=== PATIENT | male | born 1925 | race Caucasian/White ===

== ENCOUNTER 2017-04-16 09:28 | Inpatient (IN) | payer OTHER ==
[2017-04-16 09:34] VITALS: BMI 25.8
[2017-04-16] MEDS ORDERED: niCARdipine HCL 25 MG/10 ML AMPUL IVPB ONE (09:43)
--- NOTE | 2017-04-16 09:43 | PDOC ---
History of Present Illness - General History Source: Patient Exam Limitations: No Limitations - History of Present Illness Initial Comments: The patient is an 89 yo M with a past medical history significant for nephrectomy 6 years ago who presents with L sided facial droop, slurred speech and headache since this morning. The patient states he felt normal yesterday when he was golfing. The patient denies taking blood thinners or anticoagulation therapy. The patient states his symptoms began when he woke up this morning. As per EMS, the patient stated that a few weeks ago he had a similar episode where he got a headache and fainted. The patient states he went to bed at 10:30 PM last night. As per EMS, the patient was able to raise is bilateral UEs. <Amairani Porter - Last Filed: 04/16/17 11:31> <Maru Fu - Last Filed: 04/17/17 20:37> - General Stated Complaint: CVA/TIA Past History <Amairani Porter - Last Filed: 04/16/17 11:31> - Psycho/Social/Smoking Cessation Hx Suicidal Ideation: No Smoking History: Unknown if ever smoked Hx Alcohol Use: No Drug/Substance Use Hx: No <Maru Fu - Last Filed: 04/17/17 20:37> - Past Medical History Allergies/Adverse Reactions: Allergies Allergy/AdvReac Type Severity Reaction Status Date / Time No Known Allergies Allergy Verified 04/16/17 10:16 Home Medications: Ambulatory Orders Unobtainable [Unobtainable] 04/16/17 Review of Systems - Review of Systems Able to Perform ROS?: Yes Comments:: GENERAL/CONSTITUTIONAL: No fever or chills. No weakness. HEAD, EYES, EARS, NOSE AND THROAT: No change in vision. No ear pain or discharge. No sore throat. CARDIOVASCULAR: No chest pain or shortness of breath. RESPIRATORY: No cough, wheezing, or hemoptysis. GASTROINTESTINAL: No nausea, vomiting, diarrhea or constipation. GENITOURINARY: No dysuria, frequency, or change in urination. MUSCULOSKELETAL: No joint or muscle swelling or pain. No neck or back pain. SKIN: No rash NEUROLOGIC: +headache, L sided facial droop, slurred speech No vertigo, loss of consciousness. ENDOCRINE: No increased thirst. No abnormal weight change. HEMATOLOGIC/LYMPHATIC: No anemia, easy bleeding, or history of blood clots. ALLERGIC/IMMUNOLOGIC: No hives or skin allergy. <Amairani Porter - Last Filed: 04/16/17 11:31> *Physical Exam - Vital Signs Last Vital Signs Temp Pulse Resp BP Pulse Ox 97.4 F L 68 18 192/96 96 04/16/17 09:32 04/16/17 10:00 04/16/17 09:32 04/16/17 10:00 04/16/17 09:32 - Physical Exam Comments: GENERAL: Awake, alert, and fully oriented, in no acute distress HEAD: No signs of trauma EYES: PERRLA, EOMI, sclera anicteric, conjunctiva clear ENT: Auricles normal inspection, hearing grossly normal, nares patent, oropharynx clear without exudates. Moist mucosa NECK: Normal ROM, supple, no lymphadenopathy, JVD, or masses LUNGS: Breath sounds equal, clear to auscultation bilaterally. No wheezes, and no crackles HEART: Regular rate and rhythm, normal S1 and S2, no murmurs, rubs or gallops ABDOMEN: Soft, nontender, normoactive bowel sounds. No guarding, no rebound. No masses EXTREMITIES: Normal range of motion, no edema. No clubbing or cyanosis. No cords, erythema, or tenderness NEUROLOGICAL: SEE MDM SKIN: Warm, Dry, normal turgor, no rashes or lesions noted. <Amairani Porter - Last Filed: 04/16/17 11:31> - Vital Signs Last Vital Signs Temp Pulse Resp BP Pulse Ox 97.4 F L 71 18 201/96 96 04/16/17 09:32 04/16/17 09:32 04/16/17 09:32 04/16/17 09:32 04/16/17 09:32 <Maru Fu - Last Filed: 04/17/17 20:37> NIH Stroke Scale - Last Known Well Date/Time & Onset Date Last Known Well: 04/15/17 Time Last Known Well: 22:30 - Initial Evaluation Level of consciousness: Not alert, but arousable with minimal stimulation Ask patient the month and their age: Answers one correctly Ask patient to open & close eyes; make fist and let go: Obeys one correctly Best gaze (horizontal eye movement): Partial gaze palsy Visual field testing: Bilateral hemianopia (blind including cortical blindness) Facial paresis (Show teeth/raise eyebrows/close eyes tight): Partial paralysis ( total or near paralysis of lower face) Motor Function: Left Arm: Some effort against gravity Motor Function: Right Arm: Normal (extends arm 90 (or 45) degrees for 10 seconds without drift Motor Function: Left Leg: Drift Motor Function: Right Leg: Some effort against gravity Limb Ataxia: No ataxia Sensory(Use pinprick test arms,legs,trunk,face/side to side): Mild to moderate decrease in sensation Best language (Describe picture, name items, read sentences): Mild to moderate aphasia Dysarthria (read several words): Mild to moderate slurring of words Extinction and Inattention: Profound roxann-inattention or extinction to more than one modality - Total Score NIH Stroke Scale Score: 19 <Maru Fu - Last Filed: 04/17/17 20:37> tPA Exclusion Checklist 0-3hr - Time Elapsed Date last known well: 04/15/17 Time last known well: 22:30 Elaspsed time: 1 Day(s) and 22 Hour(s) and 6 Minutes - Thrombolytic Therapy Candidate Is the patient eligible for Thrombolytic Therapy?: No - Exclusion Criteria 0-3hr SBP greater than 185 or DBP greater than 110mmHg despite tx: Yes Recent IC/spinal surgery,head trauma or stroke w/in last 3mo: No Hx of previous IC hemorrhage, IC neoplasm, AVM or aneurysm: No Active internal bleeding: No Blding diathesis(low plt ct, inc PTT,INR>1.7 or use of NOAC): No Symptoms suggest subarachnoid hemorrhage: No CT demonstrates multilobar infarct(>1/3 cerebral hemiphere): No Arterial puncture at noncompressible site in previous 7 days: No Blood glucose concentration less than 50mg/dL (2.7mmol/L): No - Relative Exclusion Criteria 0-3h Life expectancy <1yr/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 There is normal sinus rhythm with a normal rate of 64 bpm. The axis is normal. The intervals are normal - pr: 168ms, QRS:86ms, QTc:462ms. There are no ST elevations or depressions. T waves diffusely flattened 04/16/17 13:21 <Maru Fu - Last Filed: 04/17/17 20:37> Critical Care Time/MDM Note Total Critical Care Time: 120 Critical Care Statement: The care of this patient involved high complexity decision making to prevent further life threatening deterioration of the patient 's condition and/or to evaluate & treat vital organ system(s) failure or risk of failure. - Medical Decision Making Note: A portion of this note was documented by scribe services under my direction. I have reviewed the details of the note, within reason, and agree with the documentation with the following case summary and management plan written by me. Nursing documentation reviewed and incorporated into medical decision making This is an 89 yo M with a history of renal cancer s/p nephrectomy Pt also godoy s history of BPH NO anticoagulants No anti platelets Pt went to bed in his usual state of health at 10:30 pm He awoke this morning and could not see his , he complained of headache He went back to bed for 1 hour He awoke again and again could not see his She assisted him to standing and stated that he was shaky She noted that his speech was slurred Apparently, this patient had a syncopal event three weeks prior in the setting of a headache Head CT reportedly normal, labs negative Pt played golf yesterday Awoke up this morning with the afore mentioned abnormalities Selected Entries 04/16/17 09:32 Temperature 97.4 F L Pulse Rate 71 Respiratory 18 Rate Blood Pressure 201/96 O2 Sat by Pulse 96 Oximetry (%) Stroke protocol initiated as patient had Left sided hemineglect Slurred speech Flattened left nasolabial fold Pt appears to be unable to follow my commands to move his eyes Is able to lift right arm and left arm Legs are strapped on EMS stretcher Pt brought directly for CT scan on EMS stretcher DD: Stroke (hemorrhagic vs. ischemic), intracranial mass, ruptured aneurysm Laboratory Tests 04/16/17 04/16/17 04/16/17 09:36 09:36 09:36 WBC 8.0 Hgb 10.5 L Hct 31.6 L Plt Count 282 INR 0.97 Sodium 140 Potassium 4.3 Chloride 107 Carbon Dioxide 25 BUN 32 H Creatinine 1.9 H Random Glucose 150 H Creatine Kinase 87 Troponin I < 0.02 Ghazal Sanchez called 04/16/17 09:36 Dr. Spencer returned the call He will come to see this patient CT performed Demonstrates large parietal bleed with shift 04/16/17 09:43 Called by Parenchymal hemorrhage Subdural blood on right tentorium (extra axial) Extension of bleeding into right ventricles Midline shift (large) moderate cerebral atrophy Will call [facility] for transfer Call placed to Pt I have explained that this patient has suffered a significant brain hemorrhage which can not be managed here She would like this patient transferred to [place] or [place] I have explained that his condition is critical and he may not make it down to [place] I have explained to her that any transfer will necessitate placing a breathing tube She insists that he should not be sent to any hospital but [facility] or [place] Call also placed to Dr. Clive Zhu He does not think this is operative case as patient is likely to have residential deficits even with aggressive intervention Call placed to his family again to determine if he is on anticoagulants They say he is only on [place] [address] Pennington assisting with intubation 04/16/17 10:06 Pt was given Etomidate and Roccuronium in preparation for intubation and for transfer Verbal order by Dr Pennington 04/16/17 10:[address] Raymond He recommends that we give Keppra, Mannitol 04/16/17 10:33 Family present in the ER They now state they do not want any thing done for this patient They do not want him transferred to another hospital They do not want him to go through any unnecessary procedures which may not prolong his life Pt daughter states that they had a neighbor that had a similar diagnosis who underwent heroic efforts to treat the issue and this only prolonged that person' s life for a few days. They do not believe Mr Mandel would want this Received Call from Dr Segundo Cole who is this patient's residential PMD He states that he last saw this patient 3 weeks ago This patient reportedly expressed to him that he would not want his life to be prolonged on a ventilator PT being bagged O2 saturations 100% through out this portion of his ER stay Call placed to anesthesia Given the dose he was given, pt can be reversed at 1 hour after the medication was given Neostygmine 3 and Glycopyrrolate 0.6 04/16/17 11:08 Case reviewed with Krysta Raphael. She recommends Palliative care consultation Call placed to palliative care (Linda Robles) 04/16/17 11:12 04/16/17 11:17 Pt seen by Anesthesia in the ER (+) twitches Will give reversal medications 04/16/17 11:20 Glycopyrrolate give, Neostygmine given 04/16/17 12:07 Pt breathing spontaneously HR: 120, RR: 20 04/16/17 12:15 Case reviewed with DENNIS Hardy Will admit to Med Surg Pt seen in the ER by Palliative Care Clinical impression: intraparenchymal bleed, prognosis poor 04/16/17 12:23 04/16/17 12:38 04/16/17 13:00 Pt seen in the ER by DENNIS Hardy <Maru Fu - Last Filed: 04/17/17 20:37> Discharge Disposition - Transfer to Acute Care Facility Transfer comment: Documentation prepared by Amairani Porter, acting as medical technologist blood bank for Maru Fu MD/DO. <Amairani Porter - Last Filed: 04/16/17 11:31> - Discharge Dispostion Admit: Yes <Maru Fu - Last Filed: 04/17/17 20:37> - Diagnosis Intraparenchymal hemorrhage of brain - Discharge Dispostion Disposition: Condition at time of disposition: Critical - Referrals
[2017-04-16 09:45] LABS: EOSINOPHIL 0.8 % (0-4.5); MCH 32.2 pg (25.7-33.7); MCHC 33.1 g/dl (32.0-35.9); MEAN CELL VOLUME 97.4 fl (80-96); MEAN PLT VOLUME 7.7 fl (7.5-11.1); NEUTROPHILS 69.9 % (42.8-82.8); PLATELET COUNT 282 K/MM3 (134-434); RDW 20.2 % (11.9-15.9)
[2017-04-16] MEDS ORDERED: NICARDIPINE 25 MG in DEXTROSE 5%-WATER - 240 ML IVPB SCH (09:45)
[2017-04-16] MEDS ORDERED: RAPID SEQUENCE INTUBATION KIT NR ONE ×2 (09:51→09:54)
[2017-04-16 09:55] LABS: ALBUMIN 3.9 g/dl (3.4-5.0); ANION GAP 8 (8-16); CALCIUM 8.7 mg/dL (8.5-10.1); CO2 25 mmol/L (21-32); GLUCOSE,RANDOM 150 mg/dL (74-106); SGOT/AST 19 U/L (15-37); SGPT/ALT 16 U/L (12-78)
[2017-04-16 09:57] LABS: BILIRUBIN,TOTAL 0.5 mg/dL (0.2-1.0); CHOLESTEROL 182 mg/dL (50-200); CREATININE 1.9 mg/dL (0.7-1.3); LDL CHOLESTEROL (ONLY SJRH) 96 mg/dL (5-100); TOT PROT 6.8 g/dl (6.4-8.2)
[2017-04-16 09:58] LABS: ALK PHOS 65 U/L (45-117); CPK 87 IU/L (39-308); TROPONIN I < 0.02 ng/ml (0.00-0.05)
[2017-04-16 09:59] LABS: URINE APPEARANCE CLEAR; URINE BILIRUBIN NEGATIVE (NEGATIVE); URINE BLOOD NEGATIVE (NEGATIVE); URINE COLOR STRAW; URINE GLUCOSE (UA) NEGATIVE (NEGATIVE); URINE KETONE NEGATIVE (NEGATIVE); URINE LEUK ESTERASE NEGATIVE (NEGATIVE); URINE NITRITE NEGATIVE (NEGATIVE); URINE PROTEIN NEGATIVE (NEGATIVE); URINE UROBILINOGEN NEGATIVE mg/dL (0.2-1.0)
[2017-04-16] MEDS: SODIUM CHLORIDE 1,000 ML IV SCH ×2 (10:00→14:24)
[2017-04-16 10:02] LABS: INR 0.97 (0.82-1.09); PROTHROMBIN TIME (PATIENT) 10.7 SEC (9.98-11.88)
[2017-04-16] MEDS ORDERED: MANNITOL 25% 12.5 GM/50 ML VIAL IVPB ONE (10:06)
[2017-04-16] MEDS ORDERED: levETIRAcetam 500 MG/5 ML INJECTION VIAL IVPB ONE ×2 (10:06→10:10)
--- NOTE | 2017-04-16 10:39 | CONSULT ---
Consult - text type - Consultation Consultation Note: Neurology History of Present Illness The patient is an 89 yo M with a past medical history significant for nephrectomy 6 years ago who presents with L sided facial droop, slurred speech and headache since this morning. The patient states he felt normal yesterday when he was golfing. The patient denies taking blood thinners or anticoagulation therapy. The patient states his symptoms began when he woke up this morning. As per EMS, the patient stated that a few weeks ago he had a similar episode where he got a headache and fainted. The patient states he went to bed at 1 pm last night. As per EMS, the patient was able to raise is bilateral UEs. He was brought to the ER and deteroriated rapidly. He was a [facility] and I spoke to ER attending immediately on being paged. He completed CT head and found to have a large R parietal bleed with midline shift and increased intracranial pressure. Blood pressures were 190's systolic and Nifedipine drip started. Trinityra intiated to seizure prevention. ER spoke to [facility] for trasfer to higher level care. - Past Medical History Allergies/Adverse Reactions: Allergies Allergy/AdvReac Type Severity Reaction Status Date / Time No Allergy Information Allergy Verified 04/16/17 09:57 Available Review of Systems - Review of Systems Able to Perform ROS?: Yes Comments:: GENERAL/CONSTITUTIONAL: No fever or chills. No weakness. HEAD, EYES, EARS, NOSE AND THROAT: No change in vision. No ear pain or discharge. No sore throat. CARDIOVASCULAR: No chest pain or shortness of breath. RESPIRATORY: No cough, wheezing, or hemoptysis. GASTROINTESTINAL: No nausea, vomiting, diarrhea or constipation. GENITOURINARY: No dysuria, frequency, or change in urination. MUSCULOSKELETAL: No joint or muscle swelling or pain. No neck or back pain. SKIN: No rash NEUROLOGIC: +headache, L sided facial droop, slurred speech No vertigo, loss of consciousness. ENDOCRINE: No increased thirst. No abnormal weight change. HEMATOLOGIC/LYMPHATIC: No anemia, easy bleeding, or history of blood clots. ALLERGIC/IMMUNOLOGIC: No hives or skin allergy. *Physical Exam - Vital Signs Last Vital Signs Temp Pulse Resp BP Pulse Ox 97.4 F L 71 18 201/96 96 04/16/17 09:32 04/16/17 09:32 08/25/17 09:32 04/16/17 09:32 04/16/17 09:32 GENERAL: Awake, alert initially but soon thereafter deterioriated and was not aware of person, place, location HEAD: No signs of trauma EYES: PERRLA, EOMI, sclera anicteric, conjunctiva clear ENT: Auricles normal inspection, hearing grossly normal, nares patent, oropharynx clear without exudates. Moist mucosa NECK: Normal ROM, supple, no lymphadenopathy, JVD, or masses LUNGS: Breath sounds equal, clear to auscultation bilaterally. No wheezes, and no crackles HEART: Regular rate and rhythm, normal S1 and S2, no murmurs, rubs or gallops ABDOMEN: Soft, nontender, normoactive bowel sounds. No guarding, no rebound. No masses EXTREMITIES: Normal range of motion, no edema. No clubbing or cyanosis. No cords, erythema, or tenderness NEUROLOGICAL: L sided hemineglect, slurred speech, diminished sensation to PP on L, 1-2/[address] head reviewed including images Parenchymal hemorrhage Subdural blood on right tentorium (extra axial) Extension of bleeding into right ventricles Midline shift (large) moderate cerebral atrophy Plan: 89 yo M with a past medical history significant for nephrectomy 6 years ago who presents with L sided facial droop, slurred speech and headache since this morning. The patient states he felt normal yesterday when he was golfing. The patient denies taking blood thinners or anticoagulation therapy. The patient states his symptoms began when he woke up this morning. As per EMS, the patient stated that a few weeks ago he had a similar episode where he got a headache and fainted. The patient states he went to bed at 1 pm last night. As per EMS, the patient was able to raise is bilateral UEs. He was brought to the ER and deteroriated rapidly. He was a [facility] and I spoke to ER attending immediately on being paged. He completed CT head and found to have a large R parietal bleed with midline shift and increased intracranial pressure. Blood pressures were 190's systolic and Nifedipine drip started. Keppra intiated to seizure prevention. ER spoke to [facility] for trasfer to higher level care. Manitol started, close neuro monitoring. Goal bp 140-160 systolic to avoid rapid hypotension. Goals of care with family, consider DNR/ DNI. Dr. Marko Epstein did not want to pursue surgical intervention here per ER staff. Hypertonic saline also to be started. Critical care 50 minutes.
[2017-04-16] MEDS ORDERED: GLYCOPYRROLATE 1 MG/5 ML VIAL IVPB ONE (11:12)
[2017-04-16] MEDS ORDERED: NEOSTIGMINE METHYLSULFATE 0.5 MG/ML - 10 ML MDV IVPUSH ONE (11:12)
[2017-04-16] MEDS ORDERED: ROCURONIUM BROMIDE 50 MG/5 ML VIAL IV ONE (11:21)
[2017-04-16] MEDS ORDERED: ETOMIDATE 40 MG/20 ML VIAL IVPUSH ONE (11:21)
[2017-04-16] MEDS ORDERED: ETOMIDATE 20 MG/10 ML AMPUL IVPUSH ONE (11:38)
--- NOTE | 2017-04-16 12:01 | EKG ---
Test Reason : Blood Pressure : / mmHG Vent. Rate : 064 BPM Atrial Rate : 064 BPM P-R Int : 168 ms QRS Dur : 086 ms QT Int : 448 ms P-R-T Axes : 077 -24 004 degrees QTc Int : 462 ms SINUS RHYTHM WITH PREMATURE ATRIAL COMPLEXES POOR R WAVE PROGRESSION NONSPECIFIC ST AND T WAVE ABNORMALITY ABNORMAL ECG NO PREVIOUS ECGS AVAILABLE Confirmed by MD ROSIE, SAVAGE ([id number]) on 04/16/2017 12:01:05 PM Referred By: Confirmed By:SAVAGE VELEZ MD
--- NOTE | 2017-04-16 12:37 | HP ---
CHIEF COMPLAINT: The patient is an 89 yo M with a past medical history significant for nephrectomy 6 years ago who presents with L sided facial droop, slurred speech and headache upon awaking this morning. The patient had stated to EMS and family that he felt normal yesterday when he was golfing. The patient denies taking blood thinners or anticoagulation therapy. The patient states his symptoms began when he woke up this morning. As per EMS, the patient stated that a few weeks ago he had a similar episode where he got a headache and fainted. The patient states he went to bed at 10:30 PM last night. As per EMS, the patient was able to raise is bilateral UEs. While in the ER, pt neurological status deteriorated rapidly. Dr. Spencer, neurology was called in. On head CT ther is noted to be a large ICH with midline shift. Pt was prepped for intubation for airway management and stablization with Mannitol and keppra when family arrived and stated the pt is a DNR/DNI. Forms were completed and attached to chart for DNR. He was stabilized with assistance of anesthsia and placed on a non rebreather and palliative care has begun. Pt will be admitted for comfort cares to a medical surgical bed. PCP: From the [facility] group in [place] PAST MEDICAL HISTORY: BPH PAST SURGICAL HISTORY: Social History: Smoking: Alcohol: Drugs: Family History: Allergies No Known Allergies Allergy (Verified 04/16/17 10:16) HOME MEDICATIONS: Home Medications Medication Instructions Recorded Unobtainable [Unobtainable] 04/16/17 REVIEW OF SYSTEMS CONSTITUTIONAL: Absent: fever, chills, diaphoresis, generalized weakness, malaise, loss of appetite, weight change HEENT: Absent: rhinorrhea, nasal congestion, throat pain, throat swelling, difficulty swallowing, mouth swelling, ear pain, eye pain, visual changes CARDIOVASCULAR: Absent: chest pain, syncope, palpitations, irregular heart rate, lightheadedness , peripheral edema RESPIRATORY: Absent: cough, shortness of breath, dyspnea with exertion, orthopnea, wheezing, stridor, hemoptysis GASTROINTESTINAL: Absent: abdominal pain, abdominal distension, nausea, vomiting, diarrhea, constipation, melena, hematochezia GENITOURINARY: Absent: dysuria, frequency, urgency, hesitancy, hematuria, flank pain, genital pain MUSCULOSKELETAL: Absent: myalgia, arthralgia, joint swelling, back pain, neck pain SKIN: Absent: rash, itching, pallor HEMATOLOGIC/IMMUNOLOGIC: Absent: easy bleeding, easy bruising, lymphadenopathy, frequent infections ENDOCRINE: Absent: unexplained weight gain, unexplained weight loss, heat intolerance, cold intolerance NEUROLOGIC: Absent: headache, focal weakness or paresthesias, dizziness, unsteady gait, seizure, mental status changes, bladder or bowel incontinence PSYCHIATRIC: Absent: anxiety, depression, suicidal or homicidal ideation, hallucinations. PHYSICAL EXAMINATION Vital Signs - 24 hr 04/16/17 04/16/17 04/16/17 09:30 09:32 09:45 Temperature 97.4 F L Pulse Rate 71 68 Pulse Rate [ Apical] Respiratory 18 Rate Blood Pressure 201/96 172/117 Blood Pressure [Right Arm] O2 Sat by Pulse 98 96 Oximetry (%) 04/16/17 04/16/17 04/16/17 10:00 10:05 10:59 Temperature Pulse Rate 66 115 H Pulse Rate [ 68 76 Apical] Respiratory 20 Rate Blood Pressure 156/90 177/92 Blood Pressure 192/96 156/90 [Right Arm] O2 Sat by Pulse 98 Oximetry (%) 04/16/17 04/16/17 04/16/17 11:01 11:30 11:48 Temperature Pulse Rate Pulse Rate [ 116 H 81 140 H Apical] Respiratory 22 20 20 Rate Blood Pressure Blood Pressure 177/92 161/73 155/78 [Right Arm] O2 Sat by Pulse 100 100 98 Oximetry (%) 04/16/17 12:07 Temperature Pulse Rate Pulse Rate [ 125 H Apical] Respiratory 18 Rate Blood Pressure Blood Pressure 155/73 [Right Arm] O2 Sat by Pulse 98 Oximetry (%) GENERAL: Awake, alert, and fully oriented, in no acute distress. HEAD: Normal with no signs of trauma. EYES: Pupils equal, round and reactive to light, extraocular movements intact, sclera anicteric, conjunctiva clear. No lid lag. EARS, NOSE, THROAT: Ears normal, nares patent, oropharynx clear without exudates. Moist mucous membranes. NECK: Normal range of motion, supple without lymphadenopathy, JVD, or masses. LUNGS: Breath sounds equal, clear to auscultation bilaterally. No wheezes, and no crackles. No accessory muscle use. HEART: Regular rate and rhythm, normal S1 and S2 without murmur, rub or gallop. ABDOMEN: Soft, nontender, not distended, normoactive bowel sounds, no guarding, no rebound, no masses. No hepatomegaly or splenomegaly. MUSCULOSKELETAL: Normal range of motion at all joints. No bony deformities or tenderness. No CVA tenderness. UPPER EXTREMITIES: 2+ pulses, warm, well-perfused. No cyanosis. No clubbing. No peripheral edema. LOWER EXTREMITIES: 2+ pulses, warm, well-perfused. No calf tenderness. No peripheral edema. NEUROLOGICAL: Cranial nerves II-XII intact. Normal speech. Normal gait. PSYCHIATRIC: Cooperative. Good eye contact. Appropriate mood and affect. SKIN: Warm, dry, normal turgor, no rashes or lesions noted, normal capillary refill. Laboratory Results - last 24 hr 04/16/17 04/16/17 04/16/17 09:36 09:36 09:36 WBC 8.0 RBC 3.25 L Hgb 10.5 L Hct 31.6 L MCV 97.4 H MCH 32.2 MCHC 33.1 RDW 20.2 H Plt Count 282 MPV 7.7 Neutrophils % 69.9 Lymphocytes % 22.1 Monocytes % 6.2 Eosinophils % 0.8 Basophils % 1.0 INR 0.97 Sodium 140 Potassium 4.3 Chloride 107 Carbon Dioxide 25 Anion Gap 8 BUN 32 H Creatinine 1.9 H Creat Clearance w eGFR 33.54 Random Glucose 150 H Calcium 8.7 Total Bilirubin 0.5 AST 19 ALT 16 Alkaline Phosphatase 65 Creatine Kinase 87 Troponin I < 0.02 Total Protein 6.8 Albumin 3.9 Triglycerides 80 Cholesterol 182 Total LDL Cholesterol 96 HDL Cholesterol 66 H Urine Color Urine Appearance Urine pH Urine Protein Urine Glucose (UA) Urine Ketones Urine Blood Urine Nitrite Urine Bilirubin Urine Urobilinogen Ur Leukocyte Esterase Blood Type Antibody Screen 04/16/17 04/16/17 09:36 09:51 WBC RBC Hgb Hct MCV MCH MCHC RDW Plt Count MPV Neutrophils % Lymphocytes % Monocytes % Eosinophils % Basophils % INR Sodium Potassium Chloride Carbon Dioxide Anion Gap BUN Creatinine Creat Clearance w eGFR Random Glucose Calcium Total Bilirubin AST ALT Alkaline Phosphatase Creatine Kinase Troponin I Total Protein Albumin Triglycerides Cholesterol Total LDL Cholesterol HDL Cholesterol Urine Color Straw Urine Appearance Clear Urine pH 6.0 Urine Protein Negative Urine Glucose (UA) Negative Urine Ketones Negative Urine Blood Negative Urine Nitrite Negative Urine Bilirubin Negative Urine Urobilinogen Negative Ur Leukocyte Esterase Negative Blood Type O POSITIVE Antibody Screen Negative ASSESSMENT/PLAN: This 89 year old active male presented with neurological changes and deteriorations. Findings consistant with ICH and midline shift. DNR/DNI -active with family consent - is next in kin -children and family at bedside in agreement Palliative care -present and seen family -comfort measures offered with morphine gtt 1 mg starting -no labs, repletions, treatments -hydration only Respiratory Care -oxygen provided -some mild distress with labored snoring respirations. Problem List - Problem (1) Intraparenchymal hemorrhage of brain Code(s): I61.9 - NONTRAUMATIC INTRACEREBRAL HEMORRHAGE, UNSPECIFIED (2) Palliative care patient Code(s): Z51.5 - ENCOUNTER FOR PALLIATIVE CARE Visit type - Emergency Visit Emergency Visit: Yes ED Registration Date: 04/16/17 Care time: The patient presented to the Emergency Department on the above date and was hospitalized for further evaluation of their emergent condition. - New Patient This patient is new to me today: Yes Date on this admission: 04/16/17 - Critical Care Critical Care patient: Yes Total Critical Care Time (in minutes): 30 Critical Care Statement: The care of this patient involved high complexity decision making to prevent further life threatening deterioration of the patient 's condition and/or to evaluate & treat vital organ system(s) failure or risk of failure.
--- NOTE | 2017-04-16 13:12 | PDOC ---
*Physical Exam - Vital Signs Last Vital Signs Temp Pulse Resp BP Pulse Ox 97.4 F L 100 H 30 H 99/59 98 04/16/17 09:32 04/16/17 12:33 04/16/17 12:31 04/16/17 12:33 04/16/17 12:31 ED Treatment Course - LABORATORY CBC & Chemistry Diagram: 04/16/17 09:36 04/16/17 09:36 - ADDITIONAL ORDERS Additional order review: Laboratory Results 04/16/17 04/16/17 04/16/17 09:51 09:36 09:36 INR Sodium 140 Potassium 4.3 Chloride 107 Carbon Dioxide 25 Anion Gap 8 BUN 32 H Creatinine 1.9 H Creat Clearance w eGFR 33.54 Random Glucose 150 H Calcium 8.7 Total Bilirubin 0.5 AST 19 ALT 16 Alkaline Phosphatase 65 Creatine Kinase 87 Troponin I < 0.02 Total Protein 6.8 Albumin 3.9 Triglycerides 80 Cholesterol 182 Total LDL Cholesterol 96 HDL Cholesterol 66 H Urine Color Straw Urine Appearance Clear Urine pH 6.0 Urine Protein Negative Urine Glucose (UA) Negative Urine Ketones Negative Urine Blood Negative Urine Nitrite Negative Urine Bilirubin Negative Urine Urobilinogen Negative Ur Leukocyte Esterase Negative Blood Type O POSITIVE Antibody Screen Negative 04/16/17 09:36 INR 0.97 Sodium Potassium Chloride Carbon Dioxide Anion Gap BUN Creatinine Creat Clearance w eGFR Random Glucose Calcium Total Bilirubin AST ALT Alkaline Phosphatase Creatine Kinase Troponin I Total Protein Albumin Triglycerides Cholesterol Total LDL Cholesterol HDL Cholesterol Urine Color Urine Appearance Urine pH Urine Protein Urine Glucose (UA) Urine Ketones Urine Blood Urine Nitrite Urine Bilirubin Urine Urobilinogen Ur Leukocyte Esterase Blood Type Antibody Screen 04/16/17 09:36 RBC 3.25 L MCV 97.4 H MCHC 33.1 RDW 20.2 H MPV 7.7 Neutrophils % 69.9 Lymphocytes % 22.1 Monocytes % 6.2 Eosinophils % 0.8 Basophils % 1.0 - Medications Given in the ED: ED Medications Discontinued Medications Generic Name Dose Route Start Last Admin Trade Name Freq PRN Reason Stop Dose Admin Etomidate 30 mg 04/16/17 11:21 04/16/17 12:49 Amidate - IVPUSH 04/16/17 11:22 Not Given NOW ONE Etomidate 20 mg 04/16/17 11:38 04/16/17 10:06 Amidate - IVPUSH 04/16/17 11:39 20 mg ONCE ONE Administration Glycopyrrolate 0.6 mg 04/16/17 11:12 04/16/17 11:50 Robinul Injection - IVPB 04/16/17 11:13 0.6 mg ONCE ONE Administration Levetiracetam 1,000 mg 04/16/17 10:06 04/16/17 10:13 Keppra Injection - IVPB 04/16/17 10:07 1,000 mg ONCE ONE Administration Mannitol 50 gm 04/16/17 10:06 04/16/17 10:29 Osmitrol - IVPB 04/16/17 10:07 50 gm ONCE ONE Administration Neostigmine Methylsulfate 3 mg 04/16/17 11:12 04/16/17 11:50 Bloxiverz - IVPUSH 04/16/17 11:13 3 mg ONCE ONE Administration Rocuronium [place] 100 mg 04/16/17 11:21 04/16/17 10:07 Zemuron - IV 04/16/17 11:22 100 mg ONCE ONE Administration Medical Decision Making - Medical Decision Making 04/16/17 12:57 89 M with ICH resulting in worsening mental status. I assisted in management of pt's airway. Dr. Fu had a phone discussion with pt's , who initially agreed to intubation for airway protection and transfer to outside facility for management of ICH. Upon this confirmation, the airway equipment was set up, pt was pre-oxygenated via NC, and medications were pulled. At approx 10:20AM, etomidate 20mg and rocuronium 100mg were administered to patient. Shortly afterwards, pt's and daughters arrived to ER, and they decided to withhold intubation and make pt DNI. I was in the process of intubating pt when pt's requested that the tube not be placed. I explained to the and family members that the pt had been paralyzed and would be unable to breathe on his own until the medications wore off. However, after family discussion with pt's primary doctor, the decision to make pt DNI was sustained. Pt was not intubated and instead received rescue breaths via BVM. O2 sat remained at 100% throughout bagging. Anesthesia called down to bedside to evaluate effect of rocuronium. After approx 1 hour, spontaneous breathing returned and rescue breaths were halted. Pt now maintaining airway and breathing spontaneously, sustaining a normal O2 sat. *DC/Admit/Observation/Transfer Diagnosis at time of Disposition: Intraparenchymal hemorrhage of brain - Discharge Dispostion Condition at time of disposition: Critical
[2017-04-16] MEDS ORDERED: MORPHINE 100 MG in SODIUM CHLORIDE 98 ML IVPB SCH (13:30)
[2017-04-16] MEDS ORDERED: morphine CARPU-JECT 2 MG/1 ML DISP.SYRIN IVPUSH ONE (14:18)
[2017-04-16] MEDS ORDERED: ACETAMINOPHEN 1000 MG/100 ML VIAL (NON FORMULARY) IVPB PRN (14:51)
[2017-04-16 17:35] VITALS: BP 153/80; PULSE 97; TEMP 97.9
[2017-04-16] MEDS ORDERED: LORazepam 2 MG/ML SDV VIAL IM PRN (18:08)
[2017-04-16] MEDS ORDERED: LORazepam 2 MG/ML SDV VIAL IVPUSH PRN (18:17)
[2017-04-16] MEDS ORDERED: PT OWN MED DRAWER 7, Y5N ONE (19:54)
--- NOTE | 2017-04-16 21:33 | HOSP ---
Subjective - Review of Symptoms Events since last encounter: Called because pt was found not to be breathing and with no pulse. Pt was examined at bedside. Pupils were fixed, dilated, and nonreactive to light. Corneal reflex was absent, pt was without pulse. Auscultation revealed absence of any heart or lung sounds. Pt was pronounced at 20:45 04/16/2017. Family was at bedside. Hospitalist notified. Physical Examination Vital Signs: Vital Signs Temperature 97.9 F 04/16/17 13:24 Pulse Rate 97 H 04/16/17 13:24 Respiratory Rate 20 04/16/17 13:24 Blood Pressure 153/80 04/16/17 13:24 O2 Sat by Pulse Oximetry (%) 100 04/16/17 13:18 Visit type - Emergency Visit Emergency Visit: No - New Patient This patient is new to me today: Yes Date on this admission: 04/16/17 - Critical Care Critical Care patient: No
--- NOTE | 2017-04-16 21:35 | DS ---
Physical Exam: HOSPITAL COURSE: Date of Admission:04/16/17 Date of Discharge: 04/16/17 The patient is an 89 yo M with a past medical history significant for nephrectomy 6 years ago who presented with L sided facial droop, slurred speech and headache upon awaking this morning. The patient had stated to EMS and family that he felt normal yesterday when he was golfing. The patient denied taking blood thinners or anticoagulation therapy. The patient stated his symptoms began when he woke up this morning. As per EMS, the patient stated that a few weeks ago he had a similar episode where he got a headache and fainted. The patient stated he went to bed at 10:30 PM last night. As per EMS, the patient was able to raise is bilateral UEs. While in the ER, pt neurological status deteriorated rapidly. Dr. Spencer, neurology was called in. On head CT ther is noted to be a large ICH with midline shift. Pt was prepped for intubation for airway management and stablization with Mannitol and keppra when family arrived and stated the pt is a DNR/DNI. Forms were completed and attached to chart for DNR. He was stabilized with assistance of anesthsia and placed on a non rebreather and palliative care has begun. Pt was admitted for comfort cares to a medical surgical bed. I was called because pt was found not to be breathing and with no pulse. Pt was examined at bedside. Pupils were fixed, dilated, and nonreactive to light. Corneal reflex was absent, pt was without pulse. Auscultation revealed absence of any heart or lung sounds. Pt was pronounced at 20:45 04/16/2017. Family was at bedside. Hospitalist notified. Minutes to complete discharge: 30 Discharge Summary Reason For Visit: INTRAPARENCHYMAL HEMORRHAGE OF BRAIN Current Active Problems Intraparenchymal hemorrhage of brain (Acute) Palliative care patient (Acute) Condition: Critical - Instructions Referrals: Chrissie Groves MD [Primary Care Provider] - - Home Medications Comprehensive Discharge Medication List: Ambulatory Orders Unobtainable [Unobtainable] 04/16/17 This patient is new to me today: Yes Date on this admission: 04/16/17 Emergency Visit: Yes ED Registration Date: 04/16/17 Care time: The patient presented to the Emergency Department on the above date and was hospitalized for further evaluation of their emergent condition. Critical Care patient: No - Discharge Referral Referred to [facility] No
[2017-04-16] MEDS ORDERED: levETIRAcetam 500 MG/5 ML INJECTION VIAL IVPB SCH (22:00)
== END 2017-04-16 21:45 | disposition expired | DRG 66 ==
LOC: JER 09:28 → JERBED 12:18 → J8W 13:40
PROVIDERS: ADMIT Internal Medicine; ATTEND Nurse Practitioner Family
DX: I61.8 Other nontraumatic intracerebral hemorrhage (principal); Z51.5 Encounter for palliative care; G31.89 Other specified degenerative diseases of nervous system; N40.0 Benign prostatic hyperplasia without lower urinary tract symptoms; Z66 Do not resuscitate; R29.810 Facial weakness; R47.81 Slurred speech; Z85.528 Personal history of other malignant neoplasm of kidney
CPT/HCPCS: 36415; 70450-TC; 71010-TC; 80053; 81003; 82465; 83718; 83721; 84478; 84484; 85025; 85610; 86850; 86900; 86901; 87086; 93005; 93010; 99285-25